=== PATIENT | female | born 1970 | race American Indian/Alaskan Native ===

== ENCOUNTER 2016-07-30 14:21 | Emergency (ER) | payer OTHER ==
[2016-07-30 16:03] VITALS: BP 161/90
[2016-07-30 16:31] LABS: Basophils % (Auto) 0.6 % (0.0-1.8); Eosinophils % (Auto) 0.7 % (0.0-4.3); Hemoglobin 12.1 gm/dl (10.1-14.3); Mean Corpuscular HGB Conc 32 % (30-34); Mean Corpuscular Volume 78 fl (79-97); Platelet Count 301 K/mm3 (140-440); Red Blood Count 4.87 M/mm3 (3.65-5.03); Red Cell Distribution Width 13.3 % (13.2-15.2); White Blood Count 7.7 K/mm3 (4.5-11.0)
[2016-07-30 16:41] LABS: INR 0.93 (0.87-1.13); Partial Thromboplastin Time 26.6 Sec. (24.2-36.6)
[2016-07-30 16:49] LABS: Mean Corpuscular Hemoglobin 25 pg (28-32)
[2016-07-30 16:53] LABS: Anion Gap 20 mmol/L; BUN/Creatinine Ratio 17.14; Blood Urea Nitrogen 12 mg/dL (7-17); Calcium 9.2 mg/dL (8.4-10.2); Carbon Dioxide 22 mmol/L (22-30); Chloride 105.3 mmol/L (98-107); Glucose 98 mg/dL (65-100); Potassium 3.9 mmol/L (3.6-5.0); Sodium 143 mmol/L (137-145)
--- NOTE | 2016-07-30 16:54 | Cat Scan Report ---
FINAL REPORT PROCEDURE: CT HEAD/BRAIN WO CON TECHNIQUE: Computerized tomography of the head was performed without contrast material. HISTORY: neuro deficits COMPARISON: No prior studies are available for comparison. FINDINGS: No CT evidence of intracranial mass, hemorrhage, acute territorial infarction, or hydrocephalus. The intracranial arteries are symmetric in density. Calvarium is intact. The visualized paranasal sinuses and mastoids are aerated. IMPRESSION: No CT evidence of acute intracranial disease process
--- NOTE | 2016-08-01 10:57 | ED Elopement Review ---
ED Pt Elopement review - Results review Lab results: Laboratory Tests 07/30/16 07/30/16 07/30/16 16:04 16:13 16:13 WBC 7.7 RBC 4.87 Hgb 12.1 Hct 38.0 MCV 78 L MCH 25 L MCHC 32 RDW 13.3 Plt Count 301 Lymph % (Auto) 26.0 [place] % (Auto) 5.2 Eos % (Auto) 0.7 Baso % (Auto) 0.6 Lymph # 2.0 [place] # 0.4 Eos # 0.1 Baso # 0.0 Seg Neutrophils % 67.5 Seg Neutrophils # 5.2 PT 12.4 INR 0.93 APTT 26.6 Thrombin Time Sodium Potassium Chloride Carbon Dioxide Anion Gap BUN Creatinine Estimated GFR BUN/Creatinine Ratio Glucose POC Glucose 82 Calcium Troponin T 07/30/16 07/30/16 16:13 16:13 WBC RBC Hgb Hct MCV MCH MCHC RDW Plt Count Lymph % (Auto) [place] % (Auto) Eos % (Auto) Baso % (Auto) Lymph # [place] # Eos # Baso # Seg Neutrophils % Seg Neutrophils # PT INR APTT Thrombin Time 16.0 Sodium 143 Potassium 3.9 Chloride 105.3 Carbon Dioxide 22 Anion Gap 20 BUN 12 Creatinine 0.7 Estimated GFR > 60 BUN/Creatinine Ratio 17.14 Glucose 98 POC Glucose Calcium 9.2 Troponin T < 0.010 - Call Back decision Pt Call Back Decision: No action required
== END 2016-07-30 18:01 | disposition left against medical advice (07) ==
LOC: ED 14:21 → EDBD 14:21 → ED 18:01
DX: R20.2 Paresthesia of skin (principal); Z53.21 Procedure and treatment not carried out due to patient leaving prior to being seen by health care provider
CPT/HCPCS: 36415; 70450; 80048; 82962; 84484; 85025; 85610; 85670; 85730